=== PATIENT | female | born 1965 | race Two or more races ===

== ENCOUNTER 2020-05-03 12:04 | Emergency (ER) | payer OTHER ==
[~2020-05-03] VITALS: Ht 170.2 cm; Wt 73.0 kg
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
[2020-05-03] MEDS ORDERED: KETOROLAC 30 MG/1 ML ONE (12:42)
[2020-05-03] MEDS ORDERED: METHOCARBAMOL 750 MG TABLET ONE (12:42)
--- NOTE | 2020-05-03 12:52 | NUR ---
PT MEDICATED PER ERP ORDER FOR 9/10 NECK, BACK, AND SCHWAB PAIN. PT UPDATED ON POC. WARM BLANKETS AND CALL LIGHT WITHIN REACH.
[2020-05-03] MEDS ORDERED: METHOCARBAMOL 750 MG TABLET PO ONE (13:00)
[2020-05-03] MEDS ORDERED: KETOROLAC 30 MG/1 ML IM ONE (13:00)
--- NOTE | 2020-05-03 13:16 | NUR ---
PT TO CT.
--- NOTE | 2020-05-03 13:25 | NUR ---
REPORT TO J RN AT 1310, TRANSFER OF CARE AT THAT TIME.
--- NOTE | 2020-05-03 14:44 | NUR ---
Patient/Caregiver given discharge instructions and they have confirmed that they understand the instructions. Patient ambulatory with steady gait.
[2020-05-03 14:54] VITALS: BP 133/75
== END 2020-05-03 14:57 | disposition home or self-care (01) ==
LOC: ED 13:52
DX: S16.1XXA Strain of muscle, fascia and tendon at neck level, initial encounter (principal); S39.012A Strain of muscle, fascia and tendon of lower back, initial encounter; X58.XXXA Exposure to other specified factors, initial encounter; Y93.89 Activity, other specified; Y92.89 Other specified places as the place of occurrence of the external cause; Y99.8 Other external cause status
CPT/HCPCS: 72072; 72110; 72125; 96372; 99284; J1885